=== PATIENT | female | born 1995 | race African-American/Black ===

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

== ENCOUNTER 2017-04-07 22:13 | Emergency (ER) | payer SELFPAY ==
[~2017-04-07] VITALS: Ht 152.4 cm; Wt 75.0 kg
[~2017-04-07 22:13] MED LIST changes: +ORTH0.25 PO; +PERI8.6T PO
[2017-04-07 22:16] VITALS: BP 119/76; PULSE 91; RESP 14; TEMP 98.8; O2SAT 100
[2017-04-07 23:58] LABS: AUTOMATED NEUTROPHIL # 2.2 TH/MM3 (1.8-7.7); BASOPHIL % 0.8 % (0.0-2.0); EOSINOPHIL # 0.1 TH/MM3 (0-0.4); EOSINOPHIL % 1.1 % (0.0-4.0); HEMATOCRIT 32.1 % (35.0-46.0); HEMOGLOBIN 11.4 GM/DL (11.6-15.3); LYMPH % 50.8 % (9.0-44.0); LYMPHOCYTE # 2.8 TH/MM3 (1.0-4.8); MEAN CELL VOLUME 79.6 FL (80.0-100.0); MEAN CORPUSCULAR HEMOGLOBIN 28.1 PG (27.0-34.0); MEAN CORPUSCULAR HGB CONC 35.3 % (32.0-36.0); MEAN PLATELET VOLUME 8.6 FL (7.0-11.0); MONO % 7.7 % (0.0-8.0); MONOCYTE # 0.4 TH/MM3 (0-0.9); NEUT % 39.6 % (16.0-70.0); PLATELET COUNT 332 TH/MM3 (150-450); RED BLOOD COUNT 4.04 MIL/MM3 (4.00-5.30); RED CELL DISTRIBUTION WIDTH 16.1 % (11.6-17.2); WHITE BLOOD COUNT 5.5 TH/MM3 (4.0-11.0)
[2017-04-08 00:10] LABS: BACTERIA, URINE RARE /hpf; BILIRUBIN, URINE NEG (NEG); BLOOD, URINE NEG (NEG); GLUCOSE,URINE NEG (NEG); HYALINE CAST, URINE 1 /lpf (RARE); KETONE, URINE NEG (NEG); MUCUS URINE FEW /lpf (OCC); NITRITE,URINE NEG (NEG); SQUAMOUS EPITHELIAL CELL URINE 11 /hpf (0-5); URINE COLOR YELLOW (YELLW/STRAW); URINE LEUKOCYTE ESTERASE LARGE (NEG)
[2017-04-08 00:25] LABS: ALBUMIN 3.7 GM/DL (3.4-5.0); ALT (GPT) 16 U/L (9-42); AST (GOT) 17 U/L (16-38); BICARBONATE 27.7 MEQ/L (21.0-32.0); BLOOD UREA NITROGEN 13 MG/DL (7-18); CHLORIDE 105 MEQ/L (98-107); CREATININE 0.72 MG/DL (0.50-1.00); GLOMERULAR FILTRATION RATE 125 ML/MIN (>89); GLUCOSE,RANDOM 90 MG/DL (74-106); SODIUM (NA) 138 MEQ/L (136-145)
[2017-04-08 00:28] LABS: ALKALINE PHOSPHATASE 93 U/L (45-117); TOTAL BILIRUBIN ADULT 0.2 MG/DL (0.2-1.0); TOTAL PROTEIN 7.7 GM/DL (6.4-8.2)
[2017-04-08 01:49] VITALS: BP 117/66; PULSE 83; RESP 16; O2SAT 100
[2017-04-08] MEDS ORDERED: NITROFURANTOIN MONOHYD MACROCR 100 MG CAP PO ONE (04:30)
[2017-04-08] MEDS ORDERED: MACR100C2 PO (04:31)
--- NOTE | 2017-04-08 04:33 | PD ---
HPI Chief Complaint: Abdominal Pain Time Seen by Provider: 02:06 Travel History International Travel<30 days: No Contact w/Intl Traveler<30days: No Traveled to known affect area: No History of Present Illness HPI 22-year-old female presents to the emergency department for lower abdominal discomfort as intermittent cramping and urinary frequency with dysuria. Patient denies fever chills vomiting diarrhea flank pain or hematuria. Patient' s had no vaginal discharge or vaginal bleeding. Patient is 3 para 1 AB 1`. Patient's last menstrual period was March 15 and normal for her. Patient states her blood type is O+. Patient rates discomfort when present as brief sharp seconds induration unclear onset and resolved spontaneously. She denies any pain at this time. Frequency is rare. PFSH Past Medical History Narrative Medical ADHD anxiety asthma ADHD: Yes Asthma: Yes Weight (Kg): 1 Anxiety: Yes Cancer: No Cardiovascular Problems: No Developmental Delay: No Diabetes: No Diminished Hearing: No Headaches: No Psychiatric: Yes (depression, anxiety, ptsd) Respiratory: Yes (asthma) Immunizations Current: Yes Migraines: Yes (last time 4 weeks ago) Seizures: No Thyroid Disease: No Tetanus Vaccination: < 5 Years Influenza Vaccination: No ?: Unknown LMP: 03/12/17 : 0 Past Surgical History Surgical History: No Previous Surgery Section: Yes Other Surgery: No Social History Alcohol Use: No Tobacco Use: No Substance Use: Yes (marijuana occassionally) Allergies-Medications (Allergen,Severity, Reaction): Coded Allergies: kiwi (Unverified Allergy, Severe, Rash, 04/07/17) mustard (Unverified Allergy, Severe, Rash, 04/07/17) Reported Meds & Prescriptions Reported Meds & Active Scripts Active Macrobid (Nitrofurantoin Monoh/Nitrofur Macro) 100 Mg Cap 100 Mg PO BID 7 Days Review of Systems Except as stated in HPI: all other systems reviewed are Neg Physical Exam Narrative GENERAL: Well-developed well-nourished female in no acute distress no respiratory distress SKIN: Warm and dry. HEAD: Normocephalic. EYES: No scleral icterus. No injection or drainage. NECK: Supple, trachea midline. No JVD or lymphadenopathy. CARDIOVASCULAR: Regular rate and rhythm without murmurs, gallops, or rubs. RESPIRATORY: Breath sounds equal bilaterally. No accessory muscle use. GASTROINTESTINAL: Abdomen soft, non-tender, nondistended. Pelvic exam: Normal external exam no redness no lesions; speculum exam no blood no discharge no clots no tissue cervical os is closed; bimanual exam no adnexal masses or uterine enlargement no cervical motion tenderness os is closed. MUSCULOSKELETAL: No cyanosis, or edema. BACK: Nontender without obvious deformity. No CVA tenderness. Data Data Last Documented VS Vital Signs Date Time Temp Pulse Resp B/P (MAP) Pulse Ox O2 Delivery O2 Flow Rate FiO2 04/08/17 04:39 04/08/17 01:49 83 16 100 Room Air 04/07/17 22:16 98.8 Orders Orders Complete Blood Count With Diff (04/07/17 23:22) Comprehensive Metabolic Panel (04/07/17 23:22) Urinalysis - C+S If Indicated (04/07/17 23:22) Lipase (04/07/17 23:22) Ed Urine Pregnancytest Poc (04/07/17 23:47) Urine Culture (04/07/17 23:35) Beta Hcg (Quant/Titer) (04/08/17 01:58) Ed Discharge Order (04/08/17 02:06) Nitrofurantoin Monohyd Macrocr (Macrobid (04/08/17 04:30) Labs Laboratory Tests Test 04/07/17 23:35 04/07/17 23:42 Urine Color YELLOW Urine Turbidity HAZY Urine pH 6.0 Urine Specific [place] 1.029 Urine Protein TRACE mg/dL Urine Glucose (UA) NEG mg/dL Urine Ketones NEG mg/dL Urine Occult Blood NEG Urine Nitrite NEG Urine Bilirubin NEG Urine Urobilinogen 2.0 MG/DL Urine Leukocyte Esterase LARGE Urine RBC 1 /hpf Urine WBC 9 /hpf Urine Squamous Epithelial Cells 11 /hpf Urine Bacteria RARE /hpf Urine Hyaline Casts 1 /lpf Urine Mucus FEW /lpf Microscopic Urinalysis Comment CULTURE INDICATED White Blood Count 5.5 TH/MM3 Red Blood Count 4.04 MIL/MM3 Hemoglobin 11.4 GM/DL Hematocrit 32.1 % Mean Corpuscular Volume 79.6 FL Mean Corpuscular Hemoglobin 28.1 PG Mean Corpuscular Hemoglobin Concent 35.3 % Red Cell Distribution Width 16.1 % Platelet Count 332 TH/MM3 Mean Platelet Volume 8.6 FL Neutrophils (%) (Auto) 39.6 % Lymphocytes (%) (Auto) 50.8 % Monocytes (%) (Auto) 7.7 % Eosinophils (%) (Auto) 1.1 % Basophils (%) (Auto) 0.8 % Neutrophils # (Auto) 2.2 TH/MM3 Lymphocytes # (Auto) 2.8 TH/MM3 Monocytes # (Auto) 0.4 TH/MM3 Eosinophils # (Auto) 0.1 TH/MM3 Basophils # (Auto) 0.0 TH/MM3 CBC Comment DIFF FINAL Differential Comment Blood Urea Nitrogen 13 MG/DL Creatinine 0.72 MG/DL Random Glucose 90 MG/DL Total Protein 7.7 GM/DL Albumin 3.7 GM/DL Calcium Level 9.0 MG/DL Alkaline Phosphatase 93 U/L Aspartate Amino Transf (AST/SGOT) 17 U/L Alanine Aminotransferase (ALT/SGPT) 16 U/L Total Bilirubin 0.2 MG/DL Sodium Level 138 MEQ/L Potassium Level 3.6 MEQ/L Chloride Level 105 MEQ/L Carbon Dioxide Level 27.7 MEQ/L Anion Gap 5 MEQ/L Estimat Glomerular Filtration Rate 125 ML/MIN Lipase 70 U/L Human Chorionic Gonadotropin, Quant 40 MIU/ML MDM Medical Decision Making Medical Screen Exam Complete: Yes Emergency Medical Condition: Yes Medical Record Reviewed: Yes Interpretation(s) Urinalysis white blood cells bacteria culture indicated Quantitative hCG 40, elevated Point of care hCG positive CBC is automated differential grossly within normal limitsCBC & BMP Diagram 04/07/17 23:42 Total Protein 7.7, Albumin 3.7, Calcium Level 9.0, Alkaline Phosphatase 93, Aspartate Amino Transf (AST/SGOT) 17, Alanine Aminotransferase (ALT/SGPT) 16, Total Bilirubin 0.2 Vital Signs Date Time Temp Pulse Resp B/P (MAP) Pulse Ox O2 Delivery O2 Flow Rate FiO2 04/08/17 04:39 04/08/17 01:49 83 16 117/66 (83) 100 Room Air 04/07/17 22:16 98.8 91 14 119/76 (90) 100 Differential Diagnosis UTI ruptured ovarian cyst ectopic appendicitis Narrative Course Patient without non-tender abdomen to direct palpation no guarding or rebound pelvic exam is nontender with no uterine enlargement quantitative hCG is identified to only be 40 consistent with first 2 weeks of which appears to be consistent with dates. Patient is identified to have abnormal urinalysis with UTI and given first dose of Macrobid in the emergency department. Medical records have been reviewed patient is O+. 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 Diagnosis Primary Impression: Qualified Codes: Z3A.01 - Less than 8 weeks gestation of Additional Impression: UTI (urinary tract infection) Referrals: Trust Officer 2 days Patient Instructions: General Instructions Additional Instructions: Increase fluid hydration Take vitamins Complete course of antibiotic as prescribed Follow-up with AIRPORT SH[employer]TLE DRIVER call office to schedule follow-up appointment Repeat hormone level to be obtained in 48 hours Return to the emergency room for pain fever vomiting bleeding or any concern Med/Other Pt SpecificInfo: Prescription(s) given Scripts Nitrofurantoin Monohydrate Macrocrystals (Macrobid) 100 Mg Cap 100 MG PO BID for Infection for 7 Days, #14 CAP 0 Refills Prov: Gina Calero MD 04/08/17 Disposition: 01 DISCHARGE HOME Condition: Stable Gina Calero MD Apr 08, 2017 04:32
== END 2017-04-08 04:40 | disposition home or self-care (01) ==
LOC: NEPC 22:13
DX: O23.41 Unspecified infection of urinary tract in pregnancy, first trimester (principal); O99.511 Diseases of the respiratory system complicating pregnancy, first trimester; J45.909 Unspecified asthma, uncomplicated; O99.341 Other mental disorders complicating pregnancy, first trimester; F90.9 Attention-deficit hyperactivity disorder, unspecified type; F43.10 Post-traumatic stress disorder, unspecified; F32.9 Major depressive disorder, single episode, unspecified; Z3A.01 Less than 8 weeks gestation of pregnancy
CPT/HCPCS: 80053; 81001; 83690; 84702; 84703; 85025; 87086; 99284

== ENCOUNTER 2017-06-01 12:09 | Emergency (ER) | payer MEDICAID, OTHER ==
[~2017-06-01] VITALS: Ht 152.4 cm; Wt 72.3 kg
[~2017-06-01 12:09] MED LIST changes: +MACR100C2 PO; -OB CCAP2 PO; -ORTH0.25 PO; -PERI8.6T PO
[2017-06-01 12:31] VITALS: BP 129/61; PULSE 90; RESP 18; TEMP 98.1; O2SAT 98
[2017-06-01 15:05] VITALS: BP 127/65; PULSE 84; RESP 16; O2SAT 99
[2017-06-01] MEDS ORDERED: PREN29TA PO (15:24)
--- NOTE | 2017-06-01 15:25 | PD ---
HPI Chief Complaint: Related Problem Time Seen by Provider: 14:53 Travel History International Travel<30 days: No Contact w/Intl Traveler<30days: No Traveled to known affect area: No History of Present Illness HPI 22-year-old female complains of cramping pains. Duration is been a couple of days. Cramps are intermittent. She reports a recent diagnosis of a yeast infection and will mixing picker tender prescription this afternoon. She has had no vaginal bleeding or discharge. She reports ultrasound has been performed already revealing intrauterine . She is a 3 para 1 known to be at 11 weeks 5 days. She follows with obstetric[facility] at [facility]. Severity mild to moderate. No fever. PFSH Past Medical History ADHD: Yes Asthma: Yes Weight (Kg): 1 Anxiety: Yes Cancer: No Cardiovascular Problems: No Developmental Delay: No Diabetes: No Diminished Hearing: No GERD: Yes Headaches: No Psychiatric: Yes (depression, anxiety, ptsd) Respiratory: Yes (asthma) Immunizations Current: Yes Migraines: Yes Seizures: No Thyroid Disease: No Tetanus Vaccination: < 5 Years Influenza Vaccination: No ?: : 0 Past Surgical History Section: Yes Other Surgery: No Social History Alcohol Use: No Tobacco Use: No Substance Use: Yes (marijuana occassionally) Allergies-Medications (Allergen,Severity, Reaction): Coded Allergies: kiwi (Unverified Allergy, Severe, Rash, 06/01/17) mustard (Unverified Allergy, Severe, Rash, 06/01/17) Reported Meds & Prescriptions Reported Meds & Active Scripts Active Keflex (Cephalexin) 250 Mg Cap 250 Mg PO Q6H 3 Days Plus Iron 29-1 mg ( Vit-Iron Carbonyl) 29 Mg Iron-1 Mg Tab 1 Tab PO DAILY Review of Systems Except as stated in HPI: all other systems reviewed are Neg General / Constitutional: No: Fever Eyes: No: Photophobia Cardiovascular: No: Chest Pain or Discomfort Physical Exam Narrative GENERAL: 22-year-old female, NAD, WNWD Vital Signs Date Time Temp Pulse Resp B/P (MAP) Pulse Ox O2 Delivery O2 Flow Rate FiO2 06/01/17 15:05 84 16 127/65 (85) 99 Room Air 06/01/17 12:31 98.1 90 18 129/61 (83) 98 SKIN: Warm and dry. HEAD: Atraumatic. Normocephalic. EYES: Pupils equal and round. No scleral icterus. No injection or drainage. ENT: No nasal bleeding or discharge. Mucous membranes pink and moist. NECK: Trachea midline. No JVD. CARDIOVASCULAR: Regular rate and rhythm. RESPIRATORY: No accessory muscle use. Clear to auscultation. Breath sounds equal bilaterally. GASTROINTESTINAL: Abdomen soft, non-tender, nondistended. Hepatic and splenic margins not palpable. MUSCULOSKELETAL: Extremities without clubbing, cyanosis, or edema. No obvious deformities. NEUROLOGICAL: Awake and alert. No obvious cranial nerve deficits. Motor grossly within normal limits. Five out of 5 muscle strength in the arms and legs. Normal speech. PSYCHIATRIC: Appropriate mood and affect; insight and judgment normal. Data Data Last Documented VS Vital Signs Date Time Temp Pulse Resp B/P (MAP) Pulse Ox O2 Delivery O2 Flow Rate FiO2 06/01/17 15:05 84 16 127/65 (85) 99 Room Air 06/01/17 12:31 98.1 Orders Orders Urinalysis - C+S If Indicated (06/01/17 14:53) Urine Culture (06/01/17 15:25) Cephalexin (Keflex) (06/01/17 16:00) Ed Discharge Order (06/01/17 15:59) Labs Laboratory Tests Test 06/01/17 15:25 Urine Color YELLOW Urine Turbidity HAZY Urine pH 7.0 Urine Specific [place] 1.021 Urine Protein TRACE mg/dL Urine Glucose (UA) NEG mg/dL Urine Ketones NEG mg/dL Urine Occult Blood NEG Urine Nitrite NEG Urine Bilirubin NEG Urine Urobilinogen LESS THAN 2.0 MG/DL Urine Leukocyte Esterase MOD Urine RBC 1 /hpf Urine WBC 9 /hpf Urine Squamous Epithelial Cells 16 /hpf Urine Amorphous Sediment RARE Urine Bacteria RARE /hpf Microscopic Urinalysis Comment CULTURE INDICATED MDM Medical Decision Making Medical Screen Exam Complete: Yes Emergency Medical Condition: Yes Medical Record Reviewed: Yes Differential Diagnosis Intrauterine , UTI, ectopic Narrative Course Intrauterine is noted on ultrasound with a heart rate of approximately 150 Urinalysis reveals leukocyte esterase with WBCs Keflex prescription 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 with 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 off saw operator Diagnosis Primary Impression: Abdominal pain affecting , antepartum Additional Impression: Normal IUP (intrauterine ) on ultrasound Qualified Codes: Z34.91 - Encounter for supervision of normal , unspecified, first trimester Referrals: [facility] 2 days Med/Other Pt SpecificInfo: Prescription(s) given Scripts Cephalexin (Keflex) 250 Mg Cap 250 MG PO Q6H for Infection for 3 Days, #12 CAP 0 Refills Prov: Adalberto Pappas MD 06/01/17 Vit-Iron Carbonyl ( Plus Iron 29-1 mg) 29 Mg Iron-1 Mg Tab 1 TAB PO DAILY for Nutritional Supplement, #30 TAB 0 Refills Prov: Adalberto Pappas MD 06/01/17 Disposition: 01 DISCHARGE HOME Condition: Stable Adalberto Pappas MD Jun 01, 2017 15:25
[2017-06-01 15:47] LABS: AMORPHOUS SEDIMENT, URINE RARE; BACTERIA, URINE RARE /hpf; BILIRUBIN, URINE NEG (NEG); BLOOD, URINE NEG (NEG); GLUCOSE,URINE NEG (NEG); KETONE, URINE NEG (NEG); NITRITE,URINE NEG (NEG); SQUAMOUS EPITHELIAL CELL URINE 16 /hpf (0-5); URINE COLOR YELLOW (YELLW/STRAW); URINE LEUKOCYTE ESTERASE MOD (NEG)
[2017-06-01] MEDS ORDERED: CEPH-459 PO (15:59)
[2017-06-01] MEDS ORDERED: CEPHALEXIN MONOHYDRATE 250 MG CAP PO ONE (16:00)
== END 2017-06-01 16:26 | disposition home or self-care (01) ==
LOC: NEPD 12:09
DX: O26.891 Other specified pregnancy related conditions, first trimester (principal); R10.9 Unspecified abdominal pain; O98.811 Other maternal infectious and parasitic diseases complicating pregnancy, first trimester; J45.909 Unspecified asthma, uncomplicated; Z3A.11 11 weeks gestation of pregnancy
CPT/HCPCS: 81001; 84703; 87086; 99283

== ENCOUNTER → 2017-08-06 | Outpatient (CLI) | payer MEDICAID ==
[~2017-08-06] MED LIST changes: +CEPH-459 PO; -MACR100C2 PO; +PREN29TA PO
== END ==
LOC: HPND 09:13
PROVIDERS: ATTEND Obstetrics & Gynecology
DX: O99.212 Obesity complicating pregnancy, second trimester (principal); E66.09 Other obesity due to excess calories; Z68.30 Body mass index [BMI] 30.0-30.9, adult
CPT/HCPCS: 76811

== ENCOUNTER 2017-11-12 00:44 | Inpatient (IN) ==
[2017-11-12] MEDS ORDERED: Penicillin G Potassium Inj 5,000,000 UNIT in Sodium Chloride 0.9% Inj 100 ML IV.SIG ONE (01:19)
[2017-11-12] MEDS ORDERED: Naloxone Inj 0.4 MG/ML Vial IV.PUSH PRN (01:19)
[2017-11-12] MEDS ORDERED: fentaNYL Citrate Inj 100 MCG/2 ML Ampul IV.PUSH PRN ×2 (01:19)
[2017-11-12] MEDS ORDERED: Oxytocin 30 Units/500ml Premix 30 UNITS/500 ML BAG IV.SIG ONE (01:19)
[2017-11-12] MEDS ORDERED: Sod Chloride 0.9% Inj 1,000 ML IV.CONT PRN (01:19)
[2017-11-12] MEDS ORDERED: Sodium Chlor 0.9% Inj 500 ML IV.SIG PRN (01:19)
[2017-11-12] MEDS ORDERED: Betamethasone Sod Phos/Acetate Inj 30 MG/5 ML Vial IM ONE (01:20)
[2017-11-12] MEDS ORDERED: Citric Acid/Sodium Citrate Liq 30 ML UDC PO SCH (01:30)
[2017-11-12] MEDS ORDERED: Sod Chloride 0.9% Inj 1,000 ML IRRIGATION SCH (01:30)
[2017-11-12 01:42] LABS: Bacteria,Urine Rare /hpf; Bilirubin,Urine Negative (Negative); Clarity,Urine Clear (Clear); Color,Urine Yellow (Yellw/Straw); Glucose,Urine (UA) Negative (Negative); Leukocyte Esterase,Urine Trace (Negative); Mucus,Urine Few /lpf (Occasional); Nitrite,Urine Negative (Negative); Specific Gravity,Urine 1.011 (1.002-1.035); Squamous Epithelial Cell,Urine 2 /hpf (0-5)
[2017-11-12 01:46] LABS: Amphetamine Urine With Conf Neg (Neg); Benzodiazepine Urine With Conf Neg (Neg)
--- NOTE | 2017-11-12 01:53 | ED ---
History of Present Illness Primary Care Physician: OB care with [facility] Chief Complaint: Leaking fluid History of Present Illness: 37 yo at 35/0 presenting with leakage of fluid, large gush, at about 0100. No bleeding, infrequent mild contractions. Good movement. No CP/SOB, headache, vision change, or abdominal pain. Patient reports an uncomplicated except for placenta previa which resolved on most recent US. Weeks Gestation:: 35 Para: 1 : 3 Total # of Miscarriage(s): 1 - Inpatient Certification I certify that the inpatient services were ordered in accordance with Medicare regulations governing the order. This includes certification that hospital inpatient services are reasonable and necessary and in the case of services not specified as inpatient-only under 42 CFR 419.22(n), that they are appropriately provided as inpatient services in accordance to with the 2-midnight benchmark under 43 CFR 412.3(e) Estimated Total Length of Stay (Days): 3 Plans for Post Hospital Care: Home Review of Systems All other systems reviewed negative except as stated in HPI PMFSH - History History Provided By: Patient - Medical / Surgical Hx Neg / Unobtainable Medical Problems Denied: Yes Surgical History: No Previous Surgery - Social History I have reviewed the patient's Social History: Yes - Tobacco History Smoking Status: Never smoker - Alcohol History How Often Do You Have a Drink Containing Alcohol: Never - Substance Use History Substance History: No History of Abuse (marijuana occasionally) Medications and Allergies Allergies Allergy/AdvReac Type Severity Reaction Status Date / Time kiwi Allergy Severe Rash Verified 11/12/17 01:20 mustard Allergy Severe Rash Verified 11/12/17 01:20 Home Medications Medication Instructions Recorded Confirmed Type No Known Home Medications 11/12/17 11/12/17 History Active Medications: Active Medications Citric Acid/Sodium Citrate (Sodium Citrate/Citric Acid Liq) 30 ml PO [facility] Stop: 11/16/17 01:29 Fentanyl Citrate (Fentanyl Inj) 50 mcg IV.PUSH Q1H PRN PRN Reason: Pain Scale 3 - 5 Fentanyl Citrate (Fentanyl Inj) 100 mcg IV.PUSH Q1H PRN PRN Reason: PAIN SCALE 6 TO 10 Lactated Ringer's (Lr 1000 Ml Inj) 1,000 mls @ 125 mls/hr IV.CONT .Q8H [facility] Lactated Ringer's (Lr 1000 Ml Inj) 1,000 mls @ 3,000 mls/hr IV.SIG UNSCH PRN PRN Reason: compromise or epidural Sodium Chloride (Ns Inj) 500 mls @ 1,000 mls/hr IV.SIG UNSCH PRN PRN Reason: SEE LABEL COMMENTS Sodium Chloride (Ns Inj) 1,000 mls @ 100 mls/hr IV.CONT .Q10H PRN PRN Reason: SEE LABEL COMMENTS Penicillin G Potassium 5,000, (000 unit/ Sodium Chloride) 100 mls @ 200 mls/hr IV.SIG ONCE ONE Stop: 11/12/17 01:48 Penicillin G Potassium 2,500, (000 unit/ Sodium Chloride) 100 mls @ 200 mls/hr IV.SIG Q4H [facility] Oxytocin (Pitocin 30 Units/Ns 500 Ml Premix) 30 units in 500 mls @ 999 mls/hr IV.SIG BOLUS ONE Stop: 11/12/17 01:49 Sodium Chloride (Ns Inj) 1,000 mls @ 0 mls/hr IRRIGATION .Q0M [facility] Stop: 11/13/17 01:29 Oxytocin (Pitocin 30 Units/Ns 500 Ml Premix) 30 units in 500 mls @ 2 mls/hr IV.SIG TITRATE PRN; Protocol PRN Reason: For induction of labor Lidocaine HCl (Xylocaine 1% Inj) 10 ml INFILTRATN PRN PRN PRN Reason: For episiotomy repair Stop: 11/14/17 01:18 Lidocaine HCl (Xylocaine 1% Inj) 0.1 ml I-DERMAL PRN PRN PRN Reason: For IV start Stop: 11/15/17 01:18 Mineral Oil (Muri-Lube Oil) 10 ml TOPICAL PRN PRN PRN Reason: PRN perineal massage Misoprostol (Cytotec) 25 mcg VAGINAL Q4HR [facility] Stop: 11/13/17 03:59 Naloxone HCl (Narcan Inj) 0.1 mg IV.PUSH Q2M PRN PRN Reason: for opiate reversal Ondansetron HCl (Zofran Inj) 4 mg IV.PUSH Q6H PRN PRN Reason: NAUSEA OR VOMITING Sodium Chloride (Ns Flush) 2 ml IV.FLUSH BID [facility] Sodium Chloride (Ns Flush) 2 ml IV.FLUSH PRN PRN PRN Reason: FLUSH AFTER USING IV ACCESS Exam Vital signs: Vital Signs 11/12/17 00:56 11/12/17 00:59 11/12/17 01:01 Temperature 97.9 F Pulse Rate 98 H Respiratory Rate 16 Blood Pressure 107/58 L 11/12/17 01:14 Temperature Pulse Rate Respiratory Rate 16 Blood Pressure Intake & Output 11/11/17 11/11/17 11/12/17 06:59 18:59 06:59 Weight 72.575 kg - Additional findings Additional findings: GENERAL: Well-nourished, well-developed patient. SKIN: Warm and dry. HEAD: Normocephalic and atraumatic. EYES: No scleral icterus. No injection or drainage. ENT: No nasal drainage noted. Mucous membranes pink. Airway patent. CARDIOVASCULAR: Regular rate and rhythm without murmurs, gallops, or rubs. RESPIRATORY: Breath sounds equal bilaterally. No accessory muscle use. ABDOMEN/GI: Abdomen soft, non-tender, no rebound, no guarding GENITOURINARY: Cervix: posterior Dilation: 1 cm Effacement: 0 Presentation: Vertex Membranes: SROM approx 0100 Contractions: Approx every 15 min on monitor, 30 per patient FHT's: Category: 1 Baseline: 120 Reactive: Y Variability: moderate Decels: N EXTREMITIES: No cyanosis or edema. NEUROLOGICAL: Awake and alert. Motor and sensory grossly within normal limits. Normal speech. Results - Labs CBC & Chem 7: 11/12/17 02:08 Assessment and Plan - Diagnosis (1) premature rupture of membranes Code(s): O42.919 - premature rupture of membranes, unspecified as to length of time between rupture and onset of labor, unspecified trimester Status: Acute (2) 35 weeks gestation of Code(s): Z3A.35 - 35 weeks gestation of Status: Acute - Plan 22 yo at 35/0 weeks presenting with SROM #1 IUP Category 1 tracing, reassuring - Continuous monitoring #2 premature rupture of membrane SROM at home, GA > 34 weeks - Admit to L&D - Check GBS rapid test, give PCN until resulted - Betamethasone IM - Cytotec for IOL/cervical ripening - Pitocin after cytotec, 03/01/29 - Routine labor care #3 Placenta previa Noted on first ultrasound, however repeat US was negative sdw Dr. Darling, Dr. Suarez Discharge Plan - Physicians Team ED Provider: Sury Suarez V Primary Care Provider: UNKNOWN,
--- NOTE | 2017-11-12 01:59 | P.HPOB ---
History of Present Illness Primary Care Physician: OB care with [facility] Chief Complaint: Leaking fluid History of Present Illness: 37 yo at 35/0 presenting with leakage of fluid, large gush, at about 0100. No bleeding, infrequent mild contractions. Good movement. No CP/SOB, headache, vision change, or abdominal pain. Patient reports an uncomplicated except for placenta previa which resolved on most recent US. Weeks Gestation:: 35 Para: 1 : 3 Total # of Miscarriage(s): 1 - Inpatient Certification I certify that the inpatient services were ordered in accordance with Medicare regulations governing the order. This includes certification that hospital inpatient services are reasonable and necessary and in the case of services not specified as inpatient-only under 42 CFR 419.22(n), that they are appropriately provided as inpatient services in accordance to with the 2-midnight benchmark under 43 CFR 412.3(e) Estimated Total Length of Stay (Days): 3 Plans for Post Hospital Care: Home Review of Systems All other systems reviewed negative except as stated in [facility] History History Provided By: Patient - Medical / Surgical Hx Neg / Unobtainable Medical Problems Denied: Yes Surgical History: No Previous Surgery - Social History I have reviewed the patient's Social History: Yes - Tobacco History Smoking Status: Never smoker - Alcohol History How Often Do You Have a Drink Containing Alcohol: Never - Substance Use History Substance History: No History of Abuse (marijuana occasionally) Medications and Allergies Active Medications: Active Medications Citric Acid/Sodium Citrate (Sodium Citrate/Citric Acid Liq) 30 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 [facility] Stop: 11/16/17 01:29 Fentanyl Citrate (Fentanyl Inj) 50 mcg IV.PUSH Q1H PRN PRN Reason: Pain Scale 3 - 5 Fentanyl Citrate (Fentanyl Inj) 100 mcg IV.PUSH Q1H PRN PRN Reason: PAIN SCALE 6 TO 10 Lactated Ringer's (Lr 1000 Ml Inj) 1,000 mls @ 125 mls/hr IV.CONT .Q8H [facility] Lactated Ringer's (Lr 1000 Ml Inj) 1,000 mls @ 3,000 mls/hr IV.SIG UNSCH PRN PRN Reason: compromise or epidural Sodium Chloride (Ns Inj) 500 mls @ 1,000 mls/hr IV.SIG UNSCH PRN PRN Reason: SEE LABEL COMMENTS Sodium Chloride (Ns Inj) 1,000 mls @ 100 mls/hr IV.CONT .Q10H PRN PRN Reason: SEE LABEL COMMENTS Penicillin G Potassium 5,000, (000 unit/ Sodium Chloride) 100 mls @ 200 mls/hr IV.SIG ONCE ONE Stop: 11/12/17 01:48 Penicillin G Potassium 2,500, (000 unit/ Sodium Chloride) 100 mls @ 200 mls/hr IV.SIG Q4H [facility] Oxytocin (Pitocin 30 Units/Ns 500 Ml Premix) 30 units in 500 mls @ 999 mls/hr IV.SIG BOLUS ONE Stop: 11/12/17 01:49 Sodium Chloride (Ns Inj) 1,000 mls @ 0 mls/hr IRRIGATION .Q0M [facility] Stop: 11/13/17 01:29 Oxytocin (Pitocin 30 Units/Ns 500 Ml Premix) 30 units in 500 mls @ 2 mls/hr IV.SIG TITRATE PRN; Protocol PRN Reason: For induction of labor Lidocaine HCl (Xylocaine 1% Inj) 10 ml INFILTRATN PRN PRN PRN Reason: For episiotomy repair Stop: 11/14/17 01:18 Lidocaine HCl (Xylocaine 1% Inj) 0.1 ml I-DERMAL PRN PRN PRN Reason: For IV start Stop: 11/15/17 01:18 Mineral Oil (Muri-Lube Oil) 10 ml TOPICAL PRN PRN PRN Reason: PRN perineal massage Misoprostol (Cytotec) 25 mcg VAGINAL Q4HR [facility] Stop: 11/13/17 03:59 Naloxone HCl (Narcan Inj) 0.1 mg IV.PUSH Q2M PRN PRN Reason: for opiate reversal Ondansetron HCl (Zofran Inj) 4 mg IV.PUSH Q6H PRN PRN Reason: NAUSEA OR VOMITING Sodium Chloride (Ns Flush) 2 ml IV.FLUSH BID [facility] Sodium Chloride (Ns Flush) 2 ml IV.FLUSH PRN PRN PRN Reason: FLUSH AFTER USING IV ACCESS Allergies Allergy/AdvReac Type Severity Reaction Status Date / Time kiwi Allergy Severe Rash Verified 11/12/17 01:20 mustard Allergy Severe Rash Verified 11/12/17 01:20 Exam Vital signs: Vital Signs 11/12/17 00:56 11/12/17 00:59 11/12/17 01:01 Temperature 97.9 F Pulse Rate 98 H Respiratory Rate 16 Blood Pressure 107/58 L 11/12/17 01:14 Temperature Pulse Rate Respiratory Rate 16 Blood Pressure Intake & Output 11/11/17 11/11/17 11/12/17 06:59 18:59 06:59 Weight 72.575 kg - Additional findings Additional findings: GENERAL: Well-nourished, well-developed patient. SKIN: Warm and dry. HEAD: Normocephalic and atraumatic. EYES: No scleral icterus. No injection or drainage. ENT: No nasal drainage noted. Mucous membranes pink. Airway patent. CARDIOVASCULAR: Regular rate and rhythm without murmurs, gallops, or rubs. RESPIRATORY: Breath sounds equal bilaterally. No accessory muscle use. ABDOMEN/GI: Abdomen soft, non-tender, no rebound, no guarding GENITOURINARY: Cervix: posterior Dilation: 1 cm Effacement: 0 Presentation: Vertex Membranes: SROM approx 0100 Contractions: Approx every 15 min on monitor, 30 per patient FHT's: Category: 1 Baseline: 120 Reactive: Y Variability: moderate Decels: N EXTREMITIES: No cyanosis or edema. NEUROLOGICAL: Awake and alert. Motor and sensory grossly within normal limits. Normal speech. Assessment and Plan - Diagnosis (1) premature rupture of membranes Code(s): O42.919 - premature rupture of membranes, unspecified as to length of time between rupture and onset of labor, unspecified trimester Status: Acute (2) 35 weeks gestation of Code(s): Z3A.35 - 35 weeks gestation of Status: Acute - Plan 22 yo at 35/0 weeks presenting with SROM #1 IUP Category 1 tracing, reassuring - Continuous monitoring #2 premature rupture of membrane SROM at home, GA > 34 weeks - Admit to L&D - Check GBS rapid test, give PCN until resulted - Betamethasone IM - Cytotec for IOL/cervical ripening - Pitocin after cytotec, 03/01/29 - Routine labor care #3 Placenta previa Noted on first ultrasound, however repeat US was negative heatherw Dr. Darling, Dr. Suarez
[2017-11-12 02:25] LABS: Baso % (Auto) 0.5 % (0.0-2.0); Eos # (Auto) 0.1 th/mm3 (0.0-0.4); Eos % (Auto) 1.1 % (0.0-4.0); Hemoglobin 8.6 gm/dL (11.6-15.3); Lymph % (Auto) 27.7 % (9.0-44.0); Mean Corpuscular Hemoglobin 24.2 pg (27.0-34.0); Mean Corpuscular Volume 73.4 fL (80.0-100.0); Mean Platelet Volume 7.8 fL (7.0-11.0); Mono # (Auto) 0.5 th/mm3 (0.0-0.9); Mono % (Auto) 7.5 % (0.0-8.0); Neut # (Auto) 4.5 th/mm3 (1.8-7.7); Neut % (Auto) 63.2 % (16.0-70.0); Platelet Count 212 th/mm3 (150-450); Red Blood Count 3.54 mil/mm3 (4.00-5.30); Red Cell Distribution Width 16.6 % (11.6-17.2); White Blood Count 7.1 th/mm3 (4.0-11.0)
[2017-11-12] MEDS: Oxytocin 30 Units/500ml Premix 30 UNITS/500 ML BAG IV.SIG PRN (05:17)
[2017-11-12] MEDS ORDERED: Penicillin G Potassium Inj 2,500,000 UNIT in Sodium Chlor 0.9% Inj 100 ML IV.SIG SCH ×2 (05:20→15:00)
[2017-11-12] MEDS: Penicillin G Potassium Inj 2,500,000 UNIT in Sodium Chlor 0.9% Inj 100 ML IV.SIG SCH ×3 (14:38→20:55)
[2017-11-13] MEDS: Penicillin G Potassium Inj 2,500,000 UNIT in Sodium Chlor 0.9% Inj 100 ML IV.SIG SCH ×4 (01:30→14:19)
[2017-11-13] MEDS ORDERED: fentaNYL 2MCG-Bupiv 0.125% Epi 150 ML EPIDURAL ONE (03:45)
[2017-11-13] MEDS ORDERED: Lidocaine PF 1% Inj 5 ML Vial ONE (04:03)
[2017-11-13] MEDS ORDERED: Lidocaaine 1.5%/Epinephrine 1:200,000 PF Inj 5 ML Amp ONE (04:03)
[2017-11-13] MEDS ORDERED: Bupivacaine PF 0.25% Inj 10 ML Vial ONE (04:06)
[2017-11-13] MEDS ORDERED: fentaNYL Citrate Inj 100 MCG/2 ML Ampul EPIDURAL ONE (07:00)
[2017-11-13] MEDS ORDERED: fentaNYL 2MCG-Bupiv 0.125% Epi 150 ML EPIDURAL PRN (07:00)
--- NOTE | 2017-11-13 09:59 | P.OBLABOR ---
Subjective Interval history: Patient seen and examined at bedside. Laying comfortably. In no acute distress. Objective Vital Signs: Vital Signs - 8 hr 11/13/17 02:08 11/13/17 02:15 11/13/17 02:30 Temperature Pulse Rate 96 H 82 Respiratory Rate 18 Blood Pressure 104/60 98/56 L 11/13/17 03:00 11/13/17 03:40 11/13/17 04:12 Temperature Pulse Rate 96 H 98 H 113 H Respiratory Rate Blood Pressure 106/61 74/53 L 119/69 11/13/17 05:45 11/13/17 06:00 11/13/17 06:10 Temperature 97.7 F Pulse Rate 106 H 101 H Respiratory Rate 18 Blood Pressure 116/70 97/46 L 11/13/17 06:20 11/13/17 06:29 11/13/17 06:40 Temperature Pulse Rate 99 H 115 H 101 H Respiratory Rate Blood Pressure 82/49 L 123/100 H 98/51 L 11/13/17 06:45 11/13/17 06:50 11/13/17 07:10 Temperature Pulse Rate 102 H 101 H 97 H Respiratory Rate Blood Pressure 101/50 L 93/50 L 104/43 L 11/13/17 07:20 11/13/17 07:35 11/13/17 07:40 Temperature 97.7 F Pulse Rate 110 H 106 H 111 H Respiratory Rate Blood Pressure 103/55 L 117/55 L 112/59 L 11/13/17 08:20 11/13/17 08:40 11/13/17 09:25 Temperature Pulse Rate 101 H 103 H 95 H Respiratory Rate Blood Pressure 109/54 L 116/80 103/44 L Objective: Pelvic Exam: Cervix: anterior Dilatation: 6cm Effacement: 100 Station: -1 Presentation: cephalic Membranes: +AROM Uterine Contractions: irregular FHT's: Category: 2 Baseline: 120 bmp Reactive: yes Variability: moderate Decels: variables Assessment and Plan - Diagnosis (1) premature rupture of membranes Code(s): O42.919 - premature rupture of membranes, unspecified as to length of time between rupture and onset of labor, unspecified trimester Status: Acute (2) 35 weeks gestation of Code(s): Z3A.35 - 35 weeks gestation of Status: Acute - Plan 22 yo at 35/0 weeks admitted for Active Labor. -+AROM -IUPC Placed -Cervical check: /-2 -Pitocin: -EFM/[place]: Cat 2. Continue to Monitor. -On Pitocin 8 units -PCN q4 hours. -Routine Labor Care. -Discussed with Dr. Marquez
[2017-11-13] MEDS: Oxytocin 30 Units/500ml Premix 30 UNITS/500 ML BAG IV.SIG PRN (10:12)
[2017-11-13] MEDS ORDERED: Witch Hazel 50%/Glyderin 12.5% 40 Pad Jar RECTAL PRN (10:35)
[2017-11-13] MEDS ORDERED: Acetaminophen 325 MG Tablet PO PRN (10:35)
[2017-11-13] MEDS ORDERED: Benzocaine 20% Top Spray 60 ML Can TOPICAL PRN (10:35)
[2017-11-13] MEDS ORDERED: Naloxone Inj 0.4 MG/ML Vial IV.PUSH PRN (10:35)
[2017-11-13] MEDS ORDERED: Oxytocin 30 Units/500ml Premix 30 UNITS/500 ML BAG IV.CONT PRN (10:35)
[2017-11-13] MEDS ORDERED: Zolpidem Tartrate 5 MG Tablet PO PRN (10:35)
[2017-11-13] MEDS ORDERED: Bisacodyl 10 MG Supp RECTAL PRN (10:35)
--- NOTE | 2017-11-13 10:50 | P.OBDELI ---
Weeks Gestation: 35 Patient Started Active Labor: Yes Active Labor Start Date: 11/12/17 Artificial Rupture of Membrane: Yes (probably hindwater rupture) Artificial ROM Date: 11/13/17 Artificial ROM Time: 09:05 Anesthesia: Epidural Episiotomy: none Vaginal Delivery: Spontaneous, Precipitous Presentation: Occiput anterior, Vertex Nuchal Cord: None Delayed Cord Clamping (45 sec): Yes Placenta: Spontaneous delivery, 3 vessel cord Laceration: None Estimated blood loss (mL): 150 : Male Male A Delivery Date: 11/13/17 Delivery Time: 10:22 Weight: 2.4 kg score (1 min): 9 score (5 min): 9 Additional Information: delivered head precipitously. I arrived in time to deliver anterior shoulder and rest of body. delayed cord clamp. was noted to have white patches over face.
[2017-11-13] MEDS ORDERED: Measles/Mumps/Rubella Vaccine Inj 0.5 ML Vial SQ ONE (16:00)
[2017-11-13] MEDS ORDERED: Diphtheria/Tetanus/Pertussis Vaccine Inj 0.5 ML Syringe IM ONE (16:00)
[2017-11-14] MEDS: Senna/Docusate Sodium 8.6/50 MG Tablet PO SCH ×4 (00:22→22:08)
--- NOTE | 2017-11-14 07:36 | P.PNOB ---
Subjective Interval history: Patient is a 22 year-old delivered at 35 weeks. Patient is day 1 after . Patient's pain is well-controlled. Patient reports eating and drinking without any nausea or vomiting. Patient reports minimal bleeding. Patient has passed gas and had a bowel movements. Patient is walking without lower extremity pain or shortness of breath. Patient reports desire for contraception and is breast-feeding. Objective Vital Signs/I&O: Vital Signs 11/13/17 07:35 11/13/17 07:40 11/13/17 08:20 Temperature 97.7 F Pulse Rate 106 H 111 H 101 H Respiratory Rate Blood Pressure 117/55 L 112/59 L 109/54 L 11/13/17 08:40 11/13/17 09:25 11/13/17 09:30 Temperature 97.8 F Pulse Rate 103 H 95 H Respiratory Rate 18 Blood Pressure 116/80 103/44 L 11/13/17 09:55 11/13/17 10:00 11/13/17 10:30 Temperature Pulse Rate 106 H 105 H Respiratory Rate 18 Blood Pressure 103/51 L 107/59 L 11/13/17 10:45 11/13/17 11:00 11/13/17 12:30 Temperature 98.2 F 98.0 F Pulse Rate 81 84 70 Respiratory Rate 20 Blood Pressure 121/69 120/72 109/67 11/13/17 20:10 Temperature 98.3 F Pulse Rate 79 Respiratory Rate 17 Blood Pressure 109/65 Intake & Output 11/13/17 11/14/17 11/14/17 18:59 06:59 18:59 Intake Total 500 / 500 Balance 500 / 500 Weight 73 kg Intake: IV 500 / 500 Pitocin 30 Units/NS 500 ml 500 / 500 Premix 30 units In 500 ml @ 2 MILLIUNIT/MIN 2 mls/hr IV.SIG TITRATE PRN Rx#:[id number] Other: Weight On Admission 73 kg Result Diagrams: 11/12/17 02:08 Objective Remarks: GENERAL: Well-nourished, well-developed patient. CARDIOVASCULAR: Regular rate and rhythm without murmurs, gallops, or rubs. RESPIRATORY: Breath sounds equal bilaterally. No accessory muscle use. ABDOMEN/GI: Abdomen soft, non-tender. Fundus: Firm, non-tender at umbilicus. GENITOURINARY: Light to moderate bleeding. EXTREMITIES: No cyanosis or edema, non-tender, without signs of DVT. 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 [facility] Stop: 11/16/17 01:29 Lactated Ringer's (Lr 1000 Ml Inj) 1,000 mls @ 125 mls/hr IV.CONT .Q8H [facility] Last Admin: 11/13/17 14:20 Dose: Not Given Lactated Ringer's (Lr 1000 Ml Inj) 1,000 mls @ 3,000 mls/hr IV.SIG UNSCH PRN PRN Reason: compromise or epidural Sodium Chloride (Ns Inj) 500 mls @ 1,000 mls/hr IV.SIG UNSCH PRN PRN Reason: SEE LABEL COMMENTS Sodium Chloride (Ns Inj) 1,000 mls @ 100 mls/hr IV.CONT .Q10H PRN PRN Reason: SEE LABEL COMMENTS Oxytocin (Pitocin 30 Units/Ns 500 Ml Premix) 30 units in 500 mls @ 2 mls/hr IV.SIG TITRATE PRN; Protocol PRN Reason: For induction of labor Last Admin: 11/13/17 10:12 Dose: 2 milliunit/min, 2 mls/hr Oxytocin (Pitocin 30 Units/Ns 500 Ml Premix) 30 units in 500 mls @ 100 mls/hr IV.CONT UNSCH PRN PRN Reason: Heavy bleeding Fentanyl/Bupivacaine/Sodium Chlor (Fentanyl 2 Mcg-Bupiv 0.125% Epi) 150 mls @ 12 mls/hr EPIDURAL PRN PRN PRN Reason: for Labor Pain Last Admin: 11/13/17 14:19 Dose: 12 mls/hr Ibuprofen (Motrin) 800 mg PO Q8H PRN PRN Reason: For Cramping Last Admin: 09/16/18 00:31 Dose: 800 mg Lactulose (Lactulose Liq) 30 ml PO DAILY PRN PRN Reason: SEVERE CONSITIPATION Lidocaine HCl (Xylocaine 1% Inj) 0.1 ml I-DERMAL PRN PRN PRN Reason: For IV start Stop: 11/15/17 01:18 Mineral Oil (Muri-Lube Oil) 10 ml TOPICAL PRN PRN PRN Reason: PRN perineal massage Naloxone HCl (Narcan Inj) 0.1 mg IV.PUSH Q2M PRN PRN Reason: for opiate reversal Ondansetron HCl (Zofran Inj) 4 mg IV.PUSH Q6H PRN PRN Reason: NAUSEA OR VOMITING Ondansetron HCl (Zofran Odt) 4 mg PO Q6H PRN PRN Reason: NAUSEA OR VOMITING Oxycodone/Acetaminophen (Percocet 5/325 Mg) 1 tab PO Q4H PRN PRN Reason: PAIN SCALE 3 TO 5 Oxycodone/Acetaminophen (Percocet 5/325 Mg) 2 tab PO Q4H PRN PRN Reason: PAIN SCALE 6 TO 10 Senna/Docusate Sodium (Edith-Colace) 1 tab PO BID [facility] Last Admin: 11/14/17 00:32 Dose: Not Given Sennosides (Senokot) 17.2 mg PO Q12H PRN PRN Reason: Moderate Constipation Sodium Chloride (Ns Flush) 2 ml IV.FLUSH BID [facility] Last Admin: 11/14/17 00:22 Dose: Not Given Sodium Chloride (Ns Flush) 2 ml IV.FLUSH PRN PRN PRN Reason: FLUSH AFTER USING IV ACCESS Witch Katherine/Glycerin (Tucks Pads) 1 applicatio RECTAL QID PRN PRN Reason: HEMORRHOIDS Zolpidem Tartrate (Ambien) 5 mg PO HS PRN PRN Reason: SLEEP Assessment and Plan - Diagnosis (1) premature rupture of membranes Code(s): O42.919 - premature rupture of membranes, unspecified as to length of time between rupture and onset of labor, unspecified trimester Status: Acute (2) 35 weeks gestation of Code(s): Z3A.35 - 35 weeks gestation of Status: Acute - Plan Patient is a 40 year-old delivered at 35 weeks. Patient is day 1 after . Continue routine care. Motrin and Percocet when necessary for pain. Encourage OOB Pelvic rest for 6 weeks will need follow-up appointment at that time. appropriately. Anticipate discharge tomorrow Discussed with Dr. Wilkerson .
[2017-11-15 08:05] VITALS: BP 115/66; PULSE 69; RESP 16; TEMP 98
--- NOTE | 2017-11-15 08:43 | P.PNOB ---
Subjective Post day: 2 Interval history: Patient is a 22-year-old delivered at 35 weeks and 1 day. Patient is day 2 after NVD. Patient's pain is well-controlled. Patient reports minimal bleeding. Patient reports eating and drinking without any nausea or vomiting. Patient has passed gas and has had a bowel movement. Patient denies chest pain and shortness of breath. Patient has been ambulating; she denies lower extremity pain. Patient reports desire for contraception, which she will discuss with her PCP at her first follow-up visit. Patient has decided to breast-feed. Objective Vital Signs/I&O: Vital Signs 11/14/17 16:00 11/14/17 20:00 11/15/17 08:00 Temperature 98.2 F 98.9 F 98.0 F Pulse Rate 74 65 69 Respiratory Rate 16 Blood Pressure 92/52 L 108/70 115/66 Result Diagrams: 11/12/17 02:08 Objective Remarks: GENERAL: Well-nourished, well-developed patient. CARDIOVASCULAR: Regular rate and rhythm without murmurs, gallops, or rubs. RESPIRATORY: Breath sounds equal bilaterally. No accessory muscle use. ABDOMEN/GI: Abdomen soft, non-tender. Fundus: Firm, non-tender at umbilicus. GENITOURINARY: Light to moderate bleeding. EXTREMITIES: No cyanosis or edema, non-tender, without signs of DVT. Medications and IVs: Active Medications Acetaminophen (Tylenol) 650 mg PO Q4H PRN PRN Reason: PAIN SCALE 1 TO 2 Al Hydroxide/Mg Hydroxide (Milk Of Magnesia Liq) 30 ml PO Q12H PRN PRN Reason: Mild Constipation Benzocaine (Americaine 20% [place]) 1 spray TOPICAL Q4H PRN PRN Reason: For Perineum Discomfort Bisacodyl (Dulcolax Supp) 10 mg RECTAL DAILY PRN PRN Reason: SEVERE CONSITIPATION Citric Acid/Sodium Citrate (Sodium Citrate/Citric Acid Liq) 30 ml PO VP STRATEGY [facility] Stop: 11/16/17 01:29 Lactated Ringer's (Lr 1000 Ml Inj) 1,000 mls @ 3,000 mls/hr IV.SIG UNSCH PRN PRN Reason: compromise or epidural Sodium Chloride (Ns Inj) 500 mls @ 1,000 mls/hr IV.SIG UNSCH PRN PRN Reason: SEE LABEL COMMENTS Oxytocin (Pitocin 30 Units/Ns 500 Ml Premix) 30 units in 500 mls @ 2 mls/hr IV.SIG TITRATE PRN; Protocol PRN Reason: For induction of labor Last Admin: 11/13/17 10:12 Dose: 2 milliunit/min, 2 mls/hr Oxytocin (Pitocin 30 Units/Ns 500 Ml Premix) 30 units in 500 mls @ 100 mls/hr IV.CONT UNSCH PRN PRN Reason: Heavy bleeding Fentanyl/Bupivacaine/Sodium Chlor (Fentanyl 2 Mcg-Bupiv 0.125% Epi) 150 mls @ 12 mls/hr EPIDURAL PRN PRN PRN Reason: for Labor Pain Last Admin: 11/13/17 14:19 Dose: 12 mls/hr Ibuprofen (Motrin) 800 mg PO Q8H PRN PRN Reason: For Cramping Last Admin: 11/14/17 09:19 Dose: 800 mg Lactulose (Lactulose Liq) 30 ml PO DAILY PRN PRN Reason: SEVERE CONSITIPATION Mineral Oil (Muri-Lube Oil) 10 ml TOPICAL PRN PRN PRN Reason: PRN perineal massage Naloxone HCl (Narcan Inj) 0.1 mg IV.PUSH Q2M PRN PRN Reason: for opiate reversal Ondansetron HCl (Zofran Inj) 4 mg IV.PUSH Q6H PRN PRN Reason: NAUSEA OR VOMITING Ondansetron HCl (Zofran Odt) 4 mg PO Q6H PRN PRN Reason: NAUSEA OR VOMITING Oxycodone/Acetaminophen (Percocet 5/325 Mg) 1 tab PO Q4H PRN PRN Reason: PAIN SCALE 3 TO 5 Oxycodone/Acetaminophen (Percocet 5/325 Mg) 2 tab PO Q4H PRN PRN Reason: PAIN SCALE 6 TO 10 Senna/Docusate Sodium (Edith-Colace) 1 tab PO BID [facility] Last Admin: 11/14/17 22:08 Dose: Not Given Sennosides (Senokot) 17.2 mg PO Q12H PRN PRN Reason: Moderate Constipation Sodium Chloride (Ns Flush) 2 ml IV.FLUSH BID [facility] Last Admin: 11/15/17 01:29 Dose: Not Given Sodium Chloride (Ns Flush) 2 ml IV.FLUSH PRN PRN PRN Reason: FLUSH AFTER USING IV ACCESS Witch Katherine/Glycerin (Tucks Pads) 1 applicatio RECTAL QID PRN PRN Reason: HEMORRHOIDS Zolpidem Tartrate (Ambien) 5 mg PO HS PRN PRN Reason: SLEEP Assessment and Plan - Diagnosis (1) Normal vaginal delivery Code(s): O80 - Encounter for full-term uncomplicated delivery Status: Acute (2) 35 weeks gestation of Code(s): Z3A.35 - 35 weeks gestation of Status: Acute - Plan Patient is a 22-year-old delivered at 35 weeks and 1 day. Patient is day 2 after NVD. Continue routine care. Motrin and Percocet when necessary for pain. Encourage OOB. Pelvic rest for 6 weeks will need follow-up appointment at that time. Contraception: To discuss with PCP. Anticipate discharge today. william OB hospitalist.
[2017-11-15] MEDS: Senna/Docusate Sodium 8.6/50 MG Tablet PO SCH (09:52)
== END 2017-11-15 11:37 | disposition home or self-care (01) ==
LOC: HOBED 00:44 → H2E 01:14 → H1EA 11-13 12:19
PROVIDERS: ADMIT Obstetrics & Gynecology; ATTEND Obstetrics & Gynecology